=== PATIENT | male | born 1950 ===

== ENCOUNTER 2017-01-03 10:46 | Day surgery (SDC) | payer MEDICAID ==
[2016-12-27 11:14] VITALS: BMI 19.1
[2017-01-03] MEDS ORDERED: cefTRIAXone IV 1 gm in Dextros 50 ML IVPB ONE (13:57)
[2017-01-03] MEDS ORDERED: Iohexol 240 (50 ml) ONE (13:58)
[2017-01-03] MEDS ORDERED: Propofol 10 mg/ml Inj (20 ML) ONE (14:01)
[2017-01-03] MEDS ORDERED: HYDROmorphone 0.5 mg/0.5 ml ISec IVP PRN (14:03)
[2017-01-03] MEDS ORDERED: Lactated Ringer's 1,000 ML IV ONE (14:10)
[2017-01-03] MEDS ORDERED: Lidocaine 2% Jelly (Uro-Jet) ONE (14:37)
[2017-01-03] MEDS ORDERED: Acetaminophen-Codeine 300/30 mg Tab PO PRN (14:40)
[2017-01-03] MEDS ORDERED: Ciprofloxacin 400mg/200ml D5W 400 MG/200 ML BAG IVPB STA (14:43)
[2017-01-03 16:02] VITALS: RESP 18
--- NOTE | 2017-01-03 16:57 | RAD ---
PROCEDURE: Fluoroscopy up to 1 hr. HISTORY: HYDRONEPHROSIS/HEMATURIA COMPARISON: None TECHNIQUE: Standard protocol for this study/examination. FINDINGS: Total fluoroscopic time (continuous mode) utilized during the procedure: 21.0 seconds IMPRESSION: Less than 1 hr fluoroscopic time utilized during performance of the procedure.
[2017-01-03 17:17] VITALS: BP 110/80; PULSE 80; TEMP 97.8; O2SAT 98
--- NOTE | 2017-01-04 15:01 | RAD ---
PROCEDURE: HISTORY: HYDRONEPHROSIS/HEMATURIA COMPARISON: None TECHNIQUE: Two images FINDINGS: The current findings are similar to the fluoroscopic images. Gross right hydronephrosis present right ureteral pelvic junctional obstruction inferred the ureters are segmentally visualized and otherwise unremarkable in caliber. Probable few tiny air bubbles in the mid to distal right ureter No left hydronephrosis. Left extravasation noted Right ureteral stent in place proximal core all in right renal pelvis region distal near the right bladder IMPRESSION: As above
--- NOTE | 2017-01-17 11:34 | OP ---
PROCEDURE DATE: 01/03/2017 PREOPERATIVE DIAGNOSES: Hydronephrosis, hematuria. POSTOPERATIVE DIAGNOSES: Hydronephrosis, hematuria. PROCEDURES: Cystoscopy, retrograde pyelogram on the right side, and insertion of right double-J stent. SURGEON: Mark Michelle MD ESTIMATED BLOOD LOSS: Less than 10 mL. DRAINS: Double J stent. COMPLICATIONS: There were no complications. INDICATIONS: See history and physical for further details. A very pleasant gentleman here for the above procedure. DESCRIPTION OF PROCEDURE: After obtaining informed consent, the patient was placed on the table. Routine monitors were placed. Time-out was called to confirm the patient, positioning, etc. Antibiotic prophylaxis was given. Cystoscope via the urethra. The injury was normal. No strictures on reviewing and it was minimally visually occlusive about 2-3 cm. The ureteral orifice was identified. Retrograde pyelogram, brought to the kidney. There was a noted. The exact etiology was unclear. I do want to mention that the orifice is within normal limits. evidence of reflux. The wire is placed up in the kidney and double J stent was inserted. It does not appear to be a UPJ obstruction. It does not appear to be a reflux. Etiology mentioned is unclear. We placed a double J stent. The bladder was emptied and cystoscope removed. Exam under anesthesia revealed normal external genitalia, normal . Rectal exam was a 20-30 g prostate. The patient tolerated this procedure well without complications. ADDENDUM: The patient will be for follow up renal scan nuclear medicine and follow up ultrasound to evaluate for hydronephrosis if there is a resolution and how the kidney is working and . Kelton Michelle MD
--- NOTE | 2017-01-17 14:48 | HP ---
DATE: UROLOGY ADMISSION NOTE REASON FOR ADMISSION: For workup and treatment of hydronephrosis. HISTORY OF PRESENT ILLNESS: Mr. Richardson is a very pleasant gentleman who presented with right hydronephrosis and is here for evaluation. We will get planning for cysto retrograde and stent insertion to see the functioning and see if there is recovery to the right kidney. The patient has currently no gross hematuria. PAST MEDICAL AND SURGICAL HISTORY: As listed on the chart. No history of an IN. REVIEW OF SYSTEMS: As listed above. Eye changes noted. MEDICATIONS: See chart. PHYSICAL EXAMINATION: GENERAL: Well-nourished male, in no apparent distress. VITAL SIGNS: Noted. ABDOMEN: Overall soft, nontender. GENITOURINARY: Flank mass and his normal phallus without discharge. No testicular mass appreciated. RECTAL: no rectal masses about 20 g prostate, soft, smooth, normal, within normal limits for age. DIAGNOSES: 1. Hydronephrosis. 2. Hematuria. PLAN: As follows today. We will planning for cysto retrograde and stent insertion. I will reevaluate with the renal scan and see for renal function. Further plans will follow depending on other findings. I explained this to the patient in detail about plans, risks, benefits and treatment alternatives. 1. Antibiotic prophylaxis. 2. Cystoscopy. 3. Stent insertion. 4. Retrograde pyelogram. Further plans will follow. Kelton Michelle MD
== END 2017-01-03 17:10 | disposition home or self-care (01) ==
LOC: C.SDS 10:46
PROVIDERS: ATTEND Urology
DX: N13.30 Unspecified hydronephrosis (principal); R31.29 Other microscopic hematuria
CPT/HCPCS: 52332; 74420; 76000; 82948; C1758; C1769; C2617; J0696; J0744; J7120; Q9966